=== PATIENT | male | born 1955 | race Caucasian/White ===

== ENCOUNTER 2019-10-15 03:51 | Inpatient (IN) ==
[2019-10-15] MEDS ORDERED: AZITHROMYCIN INJ 500 MG in SODIUM CHLORIDE 0.9% 250 ML IV STA (04:16)
[2019-10-15] MEDS ORDERED: methylPREDNISolone SOD SUC 125 MG/2 ML VIAL IV STA (04:16)
[2019-10-15] MEDS ORDERED: VANCOMYCIN INJ 1,000 MG in SODIUM CHLORIDE 0.9% 250 ML IV STA ×2 (04:16→04:24)
[2019-10-15] MEDS ORDERED: ONDANSETRON 4 MG/2 ML VIAL IV STA (04:16)
[2019-10-15 04:48] LABS: ABG Base Excess 2.2 MMOL/L (-2.5-2.5); ABG HCO3 26.3 MMOL/L (20-26); ABG PCO2 35.6 MM HG (35-48); ABG PH 7.465 (7.35-7.45); ABG PO2 74.3 MM HG (80-95); ABG TCO2 22.4 MMOL/L (23-27)
[2019-10-15 05:25] LABS: Basophils % 0.1 % (0.0-0.8); Hematocrit 37.5 VOL% (42.0-52.0); Hemoglobin 12.6 GM/DL (14.0-18.0); Immature Granulocytes % 1.5 %; Immature Granulocytes Absolute 0.23 #; Lymphocytes # 1.4 10*3/uL (1.4-4.0); Mean Corpuscular HGB Conc 33.6 GM/DL (32-36); Mean Corpuscular Volume 94.7 FL (87-102); Mean Platelet Volume 10.8 FL (9.6-12.0); Monocytes % 4.2 % (1.7-12.7); Neutrophils % 85.2 % (38.7-73.9); Platelet Count 251 T/CUMM (130-400); Red Blood Count 3.96 MC/CUMM (3.8-5.5); Red Cell Distribution Width 12.4 % (9.3-17.3); White Blood Count 15.4 T/CUMM (4-12)
[2019-10-15 05:32] LABS: Apearance,Urine CLEAR (Clear); Bilirubin,Urine Negative (Negative); Blood, Urine Negative (Negative); Glucose,Urine (UA) 50 mg/dL (Negative); Ketones,Urine Negative (Negative); Mucus,Urine Moderate /LPF (Occasional); Nitrite,Urine Negative (Negative); Protein,Urine 30 MG/DL; RBC,Urine 1 /HPF (0-4); Urine Color Yellow (Yellow); Urine Specific Gravity 1.026 (1.001-1.035); Urine Urobilinogen < 2.0 EU/DL (0.2-1.0); WBC,Urine <1 /HPF (0-6)
[2019-10-15] MEDS ORDERED: DEXTROSE 50% 25 GM/50 ML VIAL IV PRN (05:44)
[2019-10-15] MEDS ORDERED: ONDANSETRON 4 MG/2 ML VIAL IV PRN (05:44)
[2019-10-15] MEDS ORDERED: GLUCAGON 1 MG VIAL IM PRN (05:44)
[2019-10-15 05:47] LABS: PT Patient Result 10.6 SECS (9.8-11.9)
[2019-10-15 06:33] LABS: Albumin 3.1 G/DL (3.4-5.0); Bilirubin,Total 0.7 MG/DL (0.2-1.0); Calcium 8.3 MG/DL (8.5-10.1); Ferritin 318.7 ng/ml (26-388); Total Protein 7.6 G/DL (6.4-8.3)
[2019-10-15 06:49] LABS: Lymphocytes 9 % (20-55); Platelet Estimate Adequate; Segmented Neutrophils 89 % (50-85); Total Cells Counted 100
[2019-10-15 06:50] LABS: Hypochromasia 1+; Microcytosis Slight
[2019-10-15] MEDS ORDERED: AZTREONAM 2,000 MG in SODIUM CHLORIDE 0.9% 100 ML IV SCH (09:00)
[2019-10-15] MEDS ORDERED: LEVOFLOXACIN INJ 750 MG in PREMIX 1 EACH IV SCH (09:00)
[2019-10-15] MEDS ORDERED: PANTOPRAZOLE 40 MG TABLET PO SCH (09:00)
[2019-10-15] MEDS: ZINC SULFATE 220 MG CAPSULE PO SCH (09:21)
[2019-10-15] MEDS: POTASSIUM CHLORIDE 20 MEQ TABLET PO PRN ×4 (09:21→15:43)
[2019-10-15] MEDS: ENOXAPARIN 40 MG/0.4 ML SYRINGE SUBCUT SCH (09:21)
[2019-10-15] MEDS ORDERED: ACETAMINOPHEN 325 MG TABLET PO PRN (17:17)
[2019-10-15] MEDS: ALPRAZolam 0.25 MG TABLET PO SCH (20:46)
[2019-10-15] MEDS: amLODIPine 5 MG TABLET PO SCH (20:46)
[2019-10-15] MEDS: POTASSIUM CHLORIDE 10 MEQ TABLET PO SCH (20:46)
[2019-10-15] MEDS: ZALEPLON 5 MG CAPSULE PO SCH (20:46)
[2019-10-15] MEDS: GABAPENTIN 400 MG CAPSULE PO SCH (20:46)
[2019-10-15] MEDS: carvediloL 6.25 MG TABLET PO SCH (20:46)
[2019-10-15] MEDS ORDERED: FLUOROMETHOLONE 0.1% OPH SUSP 5 ML BOTTLE RIGHT EYE SCH (21:00)
[2019-10-15] MEDS ORDERED: BESIFLOXACIN RIGHT EYE SCH (21:00)
[2019-10-16 03:55] LABS: Basophils % 0.2 % (0.0-0.8); Hematocrit 37.7 VOL% (42.0-52.0); Immature Granulocytes % 2.1 %; Immature Granulocytes Absolute 0.26 #; Lymphocytes # 1.1 10*3/uL (1.4-4.0); Lymphocytes % 9.1 % (21.2-54.2); Mean Corpuscular HGB Conc 34.5 GM/DL (32-36); Mean Corpuscular Volume 93.5 FL (87-102); Mean Platelet Volume 10.4 FL (9.6-12.0); Monocytes % 7.7 % (1.7-12.7); Neutrophils % 80.9 % (38.7-73.9); Platelet Count 260 T/CUMM (130-400); Red Blood Count 4.03 MC/CUMM (3.8-5.5); White Blood Count 12.5 T/CUMM (4-12)
[2019-10-16 04:23] LABS: Bilirubin,Total 0.6 MG/DL (0.2-1.0); Osmolality,Calculated 278.7 MOS/KG (273-304); Total Protein 7.4 G/DL (6.4-8.3)
[2019-10-16 04:57] LABS: Platelet Estimate Normal
[2019-10-16] MEDS ORDERED: DESVENLAFAXINE SUCCINATE 100 MG PO SCH (09:00)
[2019-10-16] MEDS: carvediloL 6.25 MG TABLET PO SCH ×2 (09:20→17:02)
[2019-10-16] MEDS: ALPRAZolam 0.25 MG TABLET PO SCH ×2 (09:20→20:34)
[2019-10-16] MEDS: MULTIVITAMIN (CENTRUM) TABLET PO SCH (09:20)
[2019-10-16] MEDS: POTASSIUM CHLORIDE 10 MEQ TABLET PO SCH ×2 (09:20→20:34)
[2019-10-16] MEDS: ASPIRIN 325 MG TABLET PO SCH (09:20)
[2019-10-16] MEDS: GABAPENTIN 400 MG CAPSULE PO SCH ×3 (09:20→20:34)
[2019-10-16] MEDS: LOSARTAN 25 MG TABLET PO SCH (09:20)
[2019-10-16] MEDS: FLUTICASONE 50 MCG NASAL SPRAY 16 GM BOTTLE BOTH NARES SCH (09:20)
[2019-10-16] MEDS: DEXAMETHASONE 10 MG/1 ML VIAL IV SCH (09:21)
[2019-10-16] MEDS: ENOXAPARIN 40 MG/0.4 ML SYRINGE SUBCUT SCH (09:21)
[2019-10-16] MEDS: LEVOFLOXACIN 750 MG TABLET PO SCH (09:21)
[2019-10-16] MEDS: amLODIPine 5 MG TABLET PO SCH (20:34)
[2019-10-16] MEDS: ZALEPLON 5 MG CAPSULE PO SCH (20:34)
[2019-10-17 05:54] LABS: Basophils % 0.2 % (0.0-0.8); Hematocrit 39.7 VOL% (42.0-52.0); Hemoglobin 13.5 GM/DL (14.0-18.0); Immature Granulocytes % 3.3 %; Immature Granulocytes Absolute 0.41 #; Lymphocytes # 1.2 10*3/uL (1.4-4.0); Lymphocytes % 9.3 % (21.2-54.2); Mean Corpuscular Volume 93.4 FL (87-102); Neutrophils % 79.2 % (38.7-73.9); Platelet Count 312 T/CUMM (130-400); Red Blood Count 4.25 MC/CUMM (3.8-5.5); Red Cell Distribution Width 11.7 % (9.3-17.3); White Blood Count 12.4 T/CUMM (4-12)
[2019-10-17 06:19] LABS: Osmolality,Calculated 276.8 MOS/KG (273-304)
[2019-10-17] MEDS: GABAPENTIN 400 MG CAPSULE PO SCH ×3 (09:51→20:32)
[2019-10-17] MEDS: ASPIRIN 325 MG TABLET PO SCH (09:51)
[2019-10-17] MEDS: LEVOFLOXACIN 750 MG TABLET PO SCH (09:51)
[2019-10-17] MEDS: ZINC SULFATE 220 MG CAPSULE PO SCH (09:51)
[2019-10-17] MEDS: ENOXAPARIN 40 MG/0.4 ML SYRINGE SUBCUT SCH (09:51)
[2019-10-17] MEDS: LOSARTAN 25 MG TABLET PO SCH (09:52)
[2019-10-17] MEDS: ALPRAZolam 0.25 MG TABLET PO SCH ×2 (09:52→20:32)
[2019-10-17] MEDS: FLUTICASONE 50 MCG NASAL SPRAY 16 GM BOTTLE BOTH NARES SCH (09:52)
[2019-10-17] MEDS: DEXAMETHASONE 10 MG/1 ML VIAL IV SCH (09:52)
[2019-10-17] MEDS: POTASSIUM CHLORIDE 10 MEQ TABLET PO SCH ×2 (09:52→20:32)
[2019-10-17] MEDS: MULTIVITAMIN (CENTRUM) TABLET PO SCH (09:52)
[2019-10-17] MEDS: carvediloL 6.25 MG TABLET PO SCH ×2 (09:52→16:23)
[2019-10-17] MEDS: ZALEPLON 5 MG CAPSULE PO SCH (20:32)
[2019-10-17] MEDS: amLODIPine 5 MG TABLET PO SCH (20:32)
[2019-10-18 05:33] LABS: Basophils # 0.1 10*3/uL (0.0-0.2); Basophils % 0.4 % (0.0-0.8); Hematocrit 40.3 VOL% (42.0-52.0); Hemoglobin 13.6 GM/DL (14.0-18.0); Immature Granulocytes % 4.4 %; Immature Granulocytes Absolute 0.65 #; Lymphocytes # 1.5 10*3/uL (1.4-4.0); Mean Corpuscular HGB Conc 33.7 GM/DL (32-36); Mean Corpuscular Volume 92.9 FL (87-102); Mean Platelet Volume 10.3 FL (9.6-12.0); Monocytes % 8.5 % (1.7-12.7); Neutrophils % 76.7 % (38.7-73.9); Platelet Count 391 T/CUMM (130-400); Red Blood Count 4.34 MC/CUMM (3.8-5.5); Red Cell Distribution Width 11.6 % (9.3-17.3); White Blood Count 14.6 T/CUMM (4-12)
[2019-10-18 05:59] LABS: Hypochromasia Slight; Lymphocytes 14 % (20-55); Microcytosis Slight; Platelet Estimate Adequate; Segmented Neutrophils 78 % (50-85); Total Cells Counted 100
[2019-10-18 06:28] LABS: Albumin 2.9 G/DL (3.4-5.0); Bilirubin,Direct 0.1 MG/DL (0.0-0.20); Bilirubin,Indirect 0.4 MG/DL (0.0-1.0); Bilirubin,Total 0.5 MG/DL (0.2-1.0); Osmolality,Calculated 275.1 MOS/KG (273-304); Total Protein 7.7 G/DL (6.4-8.3)
[2019-10-18] MEDS: MULTIVITAMIN (CENTRUM) TABLET PO SCH (08:40)
[2019-10-18] MEDS: FLUTICASONE 50 MCG NASAL SPRAY 16 GM BOTTLE BOTH NARES SCH (08:40)
[2019-10-18] MEDS: POTASSIUM CHLORIDE 10 MEQ TABLET PO SCH ×2 (08:40→20:55)
[2019-10-18] MEDS: ALPRAZolam 0.25 MG TABLET PO SCH ×2 (08:40→20:53)
[2019-10-18] MEDS: GABAPENTIN 400 MG CAPSULE PO SCH ×5 (08:40→20:53)
[2019-10-18] MEDS: ASPIRIN 325 MG TABLET PO SCH (08:41)
[2019-10-18] MEDS: LEVOFLOXACIN 750 MG TABLET PO SCH (08:41)
[2019-10-18] MEDS: carvediloL 6.25 MG TABLET PO SCH ×2 (08:42→17:04)
[2019-10-18] MEDS: LOSARTAN 25 MG TABLET PO SCH (08:46)
[2019-10-18] MEDS: DEXAMETHASONE 10 MG/1 ML VIAL IV SCH (08:47)
[2019-10-18] MEDS: ENOXAPARIN 40 MG/0.4 ML SYRINGE SUBCUT SCH (08:48)
[2019-10-18] MEDS: POTASSIUM CHLORIDE 20 MEQ TABLET PO PRN (20:53)
[2019-10-18] MEDS: ZALEPLON 5 MG CAPSULE PO SCH (20:53)
[2019-10-18] MEDS: amLODIPine 5 MG TABLET PO SCH (20:53)
[2019-10-19 05:09] LABS: Basophils # 0.1 10*3/uL (0.0-0.2); Basophils % 0.3 % (0.0-0.8); Hematocrit 41.3 VOL% (42.0-52.0); Hemoglobin 14.2 GM/DL (14.0-18.0); Immature Granulocytes % 6.2 %; Immature Granulocytes Absolute 1.14 #; Lymphocytes # 1.8 10*3/uL (1.4-4.0); Lymphocytes % 9.5 % (21.2-54.2); Mean Corpuscular HGB Conc 34.4 GM/DL (32-36); Monocytes % 8.8 % (1.7-12.7); Neutrophils % 75.2 % (38.7-73.9); Platelet Count 413 T/CUMM (130-400); Red Blood Count 4.44 MC/CUMM (3.8-5.5); Red Cell Distribution Width 11.4 % (9.3-17.3); White Blood Count 18.4 T/CUMM (4-12)
[2019-10-19 05:40] LABS: Calcium 9.1 MG/DL (8.5-10.1)
[2019-10-19 06:10] LABS: Hypochromasia Slight; Lymphocytes 8 % (20-55); Microcytosis Slight; Platelet Estimate Adequate; Segmented Neutrophils 80 % (50-85); Total Cells Counted 100
[2019-10-19 08:21] VITALS: BP 121/69
[2019-10-19] MEDS: MULTIVITAMIN (CENTRUM) TABLET PO SCH (08:42)
[2019-10-19] MEDS: GABAPENTIN 400 MG CAPSULE PO SCH (08:43)
[2019-10-19] MEDS: carvediloL 6.25 MG TABLET PO SCH (08:43)
[2019-10-19] MEDS: ZINC SULFATE 220 MG CAPSULE PO SCH (08:43)
[2019-10-19] MEDS: ALPRAZolam 0.25 MG TABLET PO SCH (08:43)
[2019-10-19] MEDS: POTASSIUM CHLORIDE 10 MEQ TABLET PO SCH (08:43)
[2019-10-19] MEDS: ENOXAPARIN 40 MG/0.4 ML SYRINGE SUBCUT SCH (08:43)
[2019-10-19] MEDS: FLUTICASONE 50 MCG NASAL SPRAY 16 GM BOTTLE BOTH NARES SCH (08:43)
[2019-10-19] MEDS: LEVOFLOXACIN 750 MG TABLET PO SCH (08:43)
[2019-10-19] MEDS: DEXAMETHASONE 10 MG/1 ML VIAL IV SCH (08:43)
[2019-10-19] MEDS: ASPIRIN 325 MG TABLET PO SCH (08:43)
[2019-10-19] MEDS: LOSARTAN 25 MG TABLET PO SCH (08:43)
== END 2019-10-19 14:57 | disposition home health service (06) | DRG 177 ==
LOC: N.ED 03:51 → N.EDINP 05:44 → SUATTDRO 05:44 → N.2E 06:07
PROVIDERS: ADMIT Internal Medicine; ATTEND Hospitalist